=== PATIENT | female | born 1985 ===

== ENCOUNTER 2023-04-07 11:32 | Emergency (ER) | payer SELFPAY ==
[2023-04-07] MEDS ORDERED: Lidocaine 1% with EPINEPHrine 1:100,000 20 ML MDV INJECT ONE (13:57)
== END 2023-04-07 15:18 | disposition home or self-care (01) ==
LOC: MW.ED 11:32
DX: S81.812A Laceration without foreign body, left lower leg, initial encounter (principal); Z91.012 Allergy to eggs; Z91.018 Allergy to other foods; Z88.8 Allergy status to other drugs, medicaments and biological substances; Z79.899 Other long term (current) drug therapy; W26.8XXA Contact with other sharp object(s), not elsewhere classified, initial encounter
CPT/HCPCS: 12004; 99282